=== PATIENT | female | born 1980 | race American Indian/Alaskan Native ===

== ENCOUNTER 2017-03-15 11:53 | Emergency (ER) | payer MEDICAID ==
[2017-03-15] MEDS ORDERED: Sodium Chloride 0.9% 10 ML Syringe FLUSH PRN (11:58)
[2017-03-15 12:34] LABS: CHLORIDE,CL 104 mmol/L (101-111); SODIUM,NA 138 mmol/L (135-145)
--- NOTE | 2017-03-15 13:44 | CR ---
Clinical history: 36-year-old female with chest pain. Upright AP portable chest unremarkable. Normal cardiac silhouette and pulmonary vascularity without signs of alveolar edema or dependent pleu ral effusion. No lung mass, hilar lymphadenopathy or focal lobar pneumonia. No atelectasis/collapse. No pneumothora x.
[2017-03-15] MEDS ORDERED: Sodium Chloride 0.9% 1,000 ML IV ONE (13:47)
[2017-03-15] MEDS ORDERED: Naloxone 2 MG/2 ML Syringe IVPUSH ONE (14:03)
[2017-03-15 14:14] VITALS: BP 111/59
--- NOTE | 2017-03-15 15:23 | EDM.PDOC ---
ED HPI GENERAL MEDICAL PROBLEM - General Chief Complaint: Drug or Alcohol Abuse Stated Complaint: BY AMBULANCE Time Seen by Provider: 03/15/17 13:00 Source of Information: Reports: Patient, EMS, EMS Notes Reviewed, Family, RN, RN Notes Reviewed History Limitations: Reports: No Limitations - History of Present Illness INITIAL COMMENTS - FREE TEXT/NARRATIVE: Patient presents to the ER via [facility]. EMS reports the patients sister found her laying on the floor with a dresser on top of her. Sister reported to EMS that the patient was not breathing and that she did chest compressions. Patient states she used meth x4 days ago, and used heroin today. Patient states she was getting a pair of underwear out of a drawer for her child, and does not remember anything after that. Patient denies any pain, chest pain, sob at this time. ALso denies recent illness, fever or chills, N/V/D. 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 Musculoskeletal History: Reports: None Neurological History: Reports: None Psychiatric History: Reports: Addiction Endocrine/Metabolic History: Reports: None Hematologic History: Reports: None Immunologic History: Reports: None Oncologic (Cancer) History: Reports: None Dermatologic History: Reports: None - Infectious Disease History Infectious Disease History: Reports: Hepatitis C - Past Surgical History Head Surgeries/Procedures: Reports: None Social & Family History - Tobacco Use Smoking Status *Q: Never Smoker Years of Tobacco use: 15 Used Tobacco, but Quit: No Second Hand Smoke Exposure: No - Caffeine Use Caffeine Use: Reports: Coffee, Soda - Alcohol Use Days Per Week of Alcohol Use: 0 - Recreational Drug Use Recreational Drug Use: Yes Drug Use in Last 12 Months: Yes Recreational Drug Type: Reports: Heroin, Marijuana/Hashish, Methamphetamine Other Recreational Drug Type: meth 4 days ago, marijuana last night, heroin 1 1/ 2 hous ago iv Recreational Drug Use Frequency: Not Used In Over 6 Months Recreational Drug Last Use: 2015 ED ROS GENERAL - Review of Systems Review Of Systems: ROS reveals no pertinent complaints other than HPI. - Physical Exam Exam: See Below Exam Limited By: No Limitations (Upon arrival patient is alert and able to answer questions appropriately) General Appearance: Alert, WD/WN, No Apparent Distress Eye Exam: Bilateral Eye: Normal Inspection, PERRL (sluggish) Ears: Normal External Exam, Normal Canal, Hearing Grossly Normal, Normal TMs Nose: Normal Inspection, Normal Mucosa, No Blood Throat/Mouth: Normal Inspection, Normal Lips, Normal Teeth, Normal Gums, Normal Oropharynx, Normal Voice, No Airway Compromise Head Exam: Atraumatic, Normocephalic Neck: Normal Inspection, Supple, Non-Tender, Full Range of Motion Respiratory/Chest: No Respiratory Distress, Lungs Clear, Normal Breath Sounds, No Accessory Muscle Use, Chest Non-Tender Cardiovascular: Normal Peripheral Pulses, Regular Rate, Rhythm, No Edema, No Gallop, No JVD, No Murmur, No Rub GI/Abdominal: Normal Bowel Sounds, Soft, Non-Tender, No Organomegaly, No Distention, No Abnormal Bruit, No Mass (Female) Exam: Deferred Rectal (Female) Exam: Deferred Neuro Exam (Abbreviated): Alert, Oriented, Normal Cognition, Normal Gait, No Motor/Sensory Deficits Back Exam: Normal Inspection, Full Range of Motion Extremities: Normal Inspection, Normal Range of Motion, Non-Tender, No Pedal Edema, Normal Capillary Refill Psychiatric: Normal Affect, Anxious Skin Exam: Warm, Dry, Intact, Normal Color, No Rash EKG INTERPRETATION Rhythm: NSR [place]: Normal P-Wave: Present QRS: Normal ST-T: Normal QT: Normal Course - Vital Signs Last Recorded V/S: Last Vital Signs Temp 95 F L 03/15/17 11:56 Pulse 57 L 03/15/17 14:13 Resp 16 03/15/17 14:13 BP 111/59 L 03/15/17 14:13 Pulse Ox 100 03/15/17 14:13 - Orders/Labs/Meds Orders: Active Orders 24 hr Category Date Time Status EKG Documentation Completion [RC] STAT Care 03/15/17 11:59 Active Peripheral IV Care [RC] . DIRECTED Care 03/15/17 12:00 Active Peripheral IV Insertion Adult [OM.PC] Stat Oth 03/15/17 11:58 Ordered Labs: Laboratory Tests 03/15/17 03/15/17 03/15/17 Range/Units 12:07 12:07 13:50 WBC 10.2 H (5.0-10.0) 10^3/uL RBC 4.37 (4.2-5.4) 10^6/uL Hgb 12.0 D (12.0-16.0) g/dL Hct 37.8 (37.0-47.0) % MCV 86.5 (80-100) fL MCH 27.5 (27.0-34.0) pg MCHC 31.7 L (33.0-35.0) g/dL Plt Count 282 (150-450) 10^3/uL Neut % (Auto) 71.9 (42.2-75.2) % Lymph % (Auto) 17.0 L (20.5-50.1) % [place] % (Auto) 4.3 (2-8) % Eos % (Auto) 6.5 H (1.0-3.0) % Baso % (Auto) 0.3 (0.0-1.0) % Sodium 138 (135-145) mmol/L Potassium 3.5 L (3.6-5.0) mmol/L Chloride 104 (101-111) mmol/L Carbon Dioxide 25.0 (21.0-31.0) mmol/L Anion Gap 12.5 BUN 7 (7-18) mg/dL Creatinine 0.7 (0.6-1.3) mg/dL Est Cr Clr Drug Dosing 132.25 mL/min Estimated GFR (MDRD) > 60 BUN/Creatinine Ratio 10.00 Glucose 139 H (74-105) mg/dL Calcium 8.8 (8.4-10.2) mg/dl Total Bilirubin 0.5 (0.2-1.0) mg/dL AST 52 H (10-42) IU/L ALT 51 (10-60) IU/L Alkaline Phosphatase 64 (42-121) IU/L Troponin I < 0.02 (0.00-0.02) ng/ml Total Protein 8.0 (6.7-8.2) g/dl Albumin 3.9 (3.2-5.5) g/dl Globulin 4.1 Albumin/Globulin Ratio 0.95 Urine Color (YELLOW) Urine Appearance (CLEAR) Urine pH (5.0-9.0) Ur Specific [place] (1.005-1.030) Urine Protein (NEGATIVE) Urine Glucose (UA) (NEGATIVE) Urine Ketones (NEGATIVE) Urine Occult Blood (NEGATIVE) Urine Nitrite (NEGATIVE) Urine Bilirubin (NEGATIVE) Urine Urobilinogen (0.2-1.0) mg/dL Ur Leukocyte Esterase (NEGATIVE) Urine RBC /HPF Urine WBC (0-5/HPF) /HPF Ur Epithelial Cells /HPF Urine Bacteria (0-FEW/HPF) /HPF Urine HCG, Qual Urine Opiates Screen Positive H (NEGATIVE) Ur Oxycodone Screen Negative (NEGATIVE) Urine Methadone Screen Negative (NEGATIVE) Ur Barbiturates Screen Negative (NEGATIVE) U Tricyclic Antidepress Negative (NEGATIVE) Ur Phencyclidine Scrn Negative (NEGATIVE) Ur Amphetamine Screen Positive H (NEGATIVE) U Methamphetamines Scrn Positive H (NEGATIVE) Urine MDMA Screen Negative (NEGATIVE) U Benzodiazepines Scrn Negative (NEGATIVE) Urine Cocaine Screen Negative (NEGATIVE) U Marijuana (THC) Screen Positive H (NEGATIVE) Ethyl Alcohol < 5 mg/dL 03/15/17 03/15/17 Range/Units 13:50 13:50 WBC (5.0-10.0) 10^3/uL RBC (4.2-5.4) 10^6/uL Hgb (12.0-16.0) g/dL Hct (37.0-47.0) % MCV (80-100) fL MCH (27.0-34.0) pg MCHC (33.0-35.0) g/dL Plt Count (150-450) 10^3/uL Neut % (Auto) (42.2-75.2) % Lymph % (Auto) (20.5-50.1) % [place] % (Auto) (2-8) % Eos % (Auto) (1.0-3.0) % Baso % (Auto) (0.0-1.0) % Sodium (135-145) mmol/L Potassium (3.6-5.0) mmol/L Chloride (101-111) mmol/L Carbon Dioxide (21.0-31.0) mmol/L Anion Gap BUN (7-18) mg/dL Creatinine (0.6-1.3) mg/dL Est Cr Clr Drug Dosing mL/min Estimated GFR (MDRD) BUN/Creatinine Ratio Glucose (74-105) mg/dL Calcium (8.4-10.2) mg/dl Total Bilirubin (0.2-1.0) mg/dL AST (10-42) IU/L ALT (10-60) IU/L Alkaline Phosphatase (42-121) IU/L Troponin I (0.00-0.02) ng/ml Total Protein (6.7-8.2) g/dl Albumin (3.2-5.5) g/dl Globulin Albumin/Globulin Ratio Urine Color Yellow (YELLOW) Urine Appearance Slightly cloudy (CLEAR) Urine pH 5.5 (5.0-9.0) Ur Specific [place] >= 1.030 (1.005-1.030) Urine Protein Trace H (NEGATIVE) Urine Glucose (UA) Negative (NEGATIVE) Urine Ketones Negative (NEGATIVE) Urine Occult Blood Moderate H (NEGATIVE) Urine Nitrite Negative (NEGATIVE) Urine Bilirubin Negative (NEGATIVE) Urine Urobilinogen 0.2 (0.2-1.0) mg/dL Ur Leukocyte Esterase Negative (NEGATIVE) Urine RBC 5-10 H /HPF Urine WBC 0-5 (0-5/HPF) /HPF Ur Epithelial Cells Rare /HPF Urine Bacteria Rare (0-FEW/HPF) /HPF Urine HCG, Qual Negative Urine Opiates Screen (NEGATIVE) Ur Oxycodone Screen (NEGATIVE) Urine Methadone Screen (NEGATIVE) Ur Barbiturates Screen (NEGATIVE) U Tricyclic Antidepress (NEGATIVE) Ur Phencyclidine Scrn (NEGATIVE) Ur Amphetamine Screen (NEGATIVE) U Methamphetamines Scrn (NEGATIVE) Urine MDMA Screen (NEGATIVE) U Benzodiazepines Scrn (NEGATIVE) Urine Cocaine Screen (NEGATIVE) U Marijuana (THC) Screen (NEGATIVE) Ethyl Alcohol mg/dL Meds: Medications Discontinued Medications Generic Name Dose Route Start Last Admin Trade Name Freq PRN Reason Stop Dose Admin Sodium Chloride 1,000 mls @ 999 mls/hr 03/15/17 13:47 03/15/17 13:57 Normal Saline IV 03/15/17 14:47 999 mls/hr .BOLUS ONE Administration Naloxone HCl 0.4 mg 03/15/17 14:03 03/15/17 14:09 Narcan IVPUSH 03/15/17 14:04 0.4 mg ONETIME ONE Administration Sodium Chloride 10 ml 03/15/17 11:58 03/15/17 13:57 Saline Flush FLUSH 10 ml ASDIRECTED PRN Administration Keep Vein Open Departure - Departure Time of Disposition: 15:20 Disposition: Home, Self-Care 01 Condition: Fair Clinical Impression: Drug abuse - Discharge Information Instructions: Chemical Dependency, Finding Treatment for Addiction Referrals: Edgard Roland [Ordering Only Provider] - Forms: ED Department Discharge Additional Instructions: Refrain from heroin and meth use. Follow up with primary care provider. - My Orders Last 24 Hours: My Active Orders 03/15/17 11:58 Peripheral IV Insertion Adult [OM.PC] Stat 03/15/17 11:59 EKG Documentation Completion [RC] STAT 03/15/17 12:00 Peripheral IV Care [RC] . DIRECTED - Assessment/Plan Last 24 Hours: My Active Orders 03/15/17 11:58 Peripheral IV Insertion Adult [OM.PC] Stat 03/15/17 11:59 EKG Documentation Completion [RC] STAT 03/15/17 12:00 Peripheral IV Care [RC] . DIRECTED
--- NOTE | 2017-03-17 15:26 | EKG ---
03/15/2017 - JACQUELINE MONTALVO - EKG per my reading shows sinus rhythm at the rate of 60. [facility] /[id number]
== END 2017-03-15 15:50 | disposition home or self-care (01) ==
LOC: DL.ED 11:53
DX: F19.10 Other psychoactive substance abuse, uncomplicated (principal)
CPT/HCPCS: 36415; 71010; 80053; 80305; 81001; 81025; 84484; 85025; 93005; 96361; 96374; 99284; G0480; J2310; J7030; J7050

== ENCOUNTER 2019-09-29 22:42 | Emergency (ER) | payer MEDICAID ==
[2019-09-29] MEDS ORDERED: Magnesium Citrate Solution 296 ML Bottle PO ONE (22:43)
[2019-09-29 22:47] VITALS: BP 165/95; PULSE 103
--- NOTE | 2019-09-29 22:59 | EDM.PDOC ---
ED HPI GENERAL MEDICAL PROBLEM - General Chief Complaint: Abdominal Pain Stated Complaint: STOMACH PAIN Time Seen by Provider: 09/29/19 22:57 Source of Information: Reports: Patient History Limitations: Reports: No Limitations - History of Present Illness INITIAL COMMENTS - FREE TEXT/NARRATIVE: onset LLQ pain yesterday, feels like needing to BM but only got gas and diarrhoea, ate dinner tonight of ham and burger without problem, denies UTI Sx. 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 Musculoskeletal History: Reports: None Neurological History: Reports: None Psychiatric History: Reports: Addiction Endocrine/Metabolic History: Reports: None Hematologic History: Reports: None Immunologic History: Reports: None Oncologic (Cancer) History: Reports: None Dermatologic History: Reports: None - Infectious Disease History Infectious Disease History: Reports: Hepatitis C - Past Surgical History Head Surgeries/Procedures: Reports: None Female Surgical History: Reports: Section Social & Family History - Tobacco Use Smoking Status *Q: Never Smoker Second Hand Smoke Exposure: No - Caffeine Use Caffeine Use: Reports: Coffee, Soda - Recreational Drug Use Recreational Drug Use: No ED ROS GENERAL - Review of Systems Review Of Systems: Comprehensive ROS is negative, except as noted in HPI. ED EXAM, GI/ABD - Physical Exam Exam: See Below Exam Limited By: No Limitations General Appearance: Alert, WD/WN, Mild Distress, Other (discomfort). No: Active Emesis Ears: Hearing Grossly Normal Throat/Mouth: Normal Voice, No Airway Compromise Head: Atraumatic Neck: Non-Tender, Full Range of Motion Respiratory/Chest: No Respiratory Distress Cardiovascular: Regular Rate, Rhythm GI/Abdominal Exam: Tender, Other (LLQ region, BS hyper). No: Distended, Guarding, Rigid, Rebound Neurological: Alert, Oriented, Normal Cognition, Normal Gait, No Motor/Sensory Deficits Psychiatric: Flat Affect Skin Exam: Warm, Dry, Normal Color Lymphatic: No Adenopathy Course - Vital Signs Last Recorded V/S: Last Vital Signs Temp 37.2 C 09/30/19 00:10 Pulse 103 H 09/29/19 22:44 Resp 18 09/29/19 22:44 BP 165/95 H 09/29/19 22:44 Pulse Ox 96 09/29/19 22:44 - Orders/Labs/Meds Orders: Active Orders 24 hr Category Date Time Status Abdomen 1V Flat [CR] Urgent Exams 09/30/19 00:05 Taken Labs: Laboratory Tests 09/29/19 09/29/19 09/29/19 Range/Units 23:15 23:15 23:15 WBC (5.0-10.0) 10^3/uL RBC (4.2-5.4) 10^6/uL Hgb (12.0-16.0) g/dL Hct (37.0-47.0) % MCV (80-100) fL MCH (27.0-34.0) pg MCHC (33.0-35.0) g/dL Plt Count (150-450) 10^3/uL Neut % (Auto) (42.2-75.2) % Lymph % (Auto) (20.5-50.1) % [place] % (Auto) (2-8) % Eos % (Auto) (1.0-3.0) % Baso % (Auto) (0.0-1.0) % Sodium (136-145) mmol/L Potassium (3.5-5.1) mmol/L Chloride (98-107) mmol/L Carbon Dioxide (21-32) mmol/L Anion Gap (7-13) mEq/L BUN (7-18) mg/dL Creatinine (0.55-1.02) mg/dL Est Cr Clr Drug Dosing mL/min Estimated GFR (MDRD) BUN/Creatinine Ratio (No establ ref range) Glucose (74-99) mg/dL Calcium (8.5-10.1) mg/dL Total Bilirubin (0.2-1.0) mg/dL AST (15-37) U/L ALT (14-59) U/L Alkaline Phosphatase (46-116) U/L Total Protein (6.4-8.2) g/dL Albumin (3.4-5.0) g/dL Globulin Albumin/Globulin Ratio Urine Color Yellow (YELLOW) Urine Appearance Clear (CLEAR) Urine pH 8.0 (5.0-9.0) Ur Specific [place] 1.025 (1.005-1.030) Urine Protein Negative (NEGATIVE) Urine Glucose (UA) Negative (NEGATIVE) Urine Ketones Negative (NEGATIVE) Urine Occult Blood Negative (NEGATIVE) Urine Nitrite Negative (NEGATIVE) Urine Bilirubin Negative (NEGATIVE) Urine Urobilinogen 2.0 H (0.2-1.0) mg/dL Ur Leukocyte Esterase Negative (NEGATIVE) Urine HCG, Qual Negative Urine Opiates Screen Negative (NEGATIVE) Ur Oxycodone Screen Negative (NEGATIVE) Urine Methadone Screen Negative (NEGATIVE) Ur Barbiturates Screen Negative (NEGATIVE) U Tricyclic Antidepress Negative (NEGATIVE) Ur Phencyclidine Scrn Negative (NEGATIVE) Ur Amphetamine Screen Negative (NEGATIVE) U Methamphetamines Scrn Negative (NEGATIVE) Urine MDMA Screen Negative (NEGATIVE) U Benzodiazepines Scrn Negative (NEGATIVE) Urine Cocaine Screen Negative (NEGATIVE) U Marijuana (THC) Screen Negative (NEGATIVE) Ethyl Alcohol (0) mg/dL 09/29/19 09/29/19 09/29/19 Range/Units 23:20 23:20 23:20 WBC 13.4 H (5.0-10.0) 10^3/uL RBC 4.81 (4.2-5.4) 10^6/uL Hgb 12.4 (12.0-16.0) g/dL Hct 38.8 (37.0-47.0) % MCV 80.7 D (80-100) fL MCH 25.8 L (27.0-34.0) pg MCHC 32.0 L (33.0-35.0) g/dL Plt Count 245 (150-450) 10^3/uL Neut % (Auto) 63.8 (42.2-75.2) % Lymph % (Auto) 19.6 L (20.5-50.1) % [place] % (Auto) 6.6 (2-8) % Eos % (Auto) 9.8 H (1.0-3.0) % Baso % (Auto) 0.2 (0.0-1.0) % Sodium 137 (136-145) mmol/L Potassium 3.9 (3.5-5.1) mmol/L Chloride 102 (98-107) mmol/L Carbon Dioxide 23 (21-32) mmol/L Anion Gap 15.9 H (7-13) mEq/L BUN 5 L (7-18) mg/dL Creatinine 0.73 (0.55-1.02) mg/dL Est Cr Clr Drug Dosing 123.16 mL/min Estimated GFR (MDRD) > 60 BUN/Creatinine Ratio 6.8 (No establ ref range) Glucose 162 H (74-99) mg/dL Calcium 8.4 L (8.5-10.1) mg/dL Total Bilirubin 0.3 (0.2-1.0) mg/dL AST 107 H (15-37) U/L ALT 107 H (14-59) U/L Alkaline Phosphatase 111 (46-116) U/L Total Protein 8.3 H (6.4-8.2) g/dL Albumin 3.3 L (3.4-5.0) g/dL Globulin 5.0 Albumin/Globulin Ratio 0.66 Urine Color (YELLOW) Urine Appearance (CLEAR) Urine pH (5.0-9.0) Ur Specific [place] (1.005-1.030) Urine Protein (NEGATIVE) Urine Glucose (UA) (NEGATIVE) Urine Ketones (NEGATIVE) Urine Occult Blood (NEGATIVE) Urine Nitrite (NEGATIVE) Urine Bilirubin (NEGATIVE) Urine Urobilinogen (0.2-1.0) mg/dL Ur Leukocyte Esterase (NEGATIVE) Urine HCG, Qual Urine Opiates Screen (NEGATIVE) Ur Oxycodone Screen (NEGATIVE) Urine Methadone Screen (NEGATIVE) Ur Barbiturates Screen (NEGATIVE) U Tricyclic Antidepress (NEGATIVE) Ur Phencyclidine Scrn (NEGATIVE) Ur Amphetamine Screen (NEGATIVE) U Methamphetamines Scrn (NEGATIVE) Urine MDMA Screen (NEGATIVE) U Benzodiazepines Scrn (NEGATIVE) Urine Cocaine Screen (NEGATIVE) U Marijuana (THC) Screen (NEGATIVE) Ethyl Alcohol < 3 (0) mg/dL Meds: Medications Discontinued Medications Generic Name Dose Route Start Last Admin Trade Name Freq PRN Reason Stop Dose Admin Lorazepam 1 mg 09/30/19 00:34 Ativan PO 09/30/19 00:35 ONETIME ONE - Re-Assessments/Exams Free Text/Narrative Re-Assessment/Exam: 09/30/19 00:35 results discussed with pt. Departure - Departure Time of Disposition: 00:36 Disposition: Home, Self-Care 01 Condition: Good Clinical Impression: Constipation by delayed colonic transit Abdominal pain Qualifiers: Abdominal location: left lower quadrant Qualified Code(s): R10.32 - Left lower quadrant pain - Discharge Information Instructions: Constipation, Adult, [id number] Forms: ED Department Discharge Additional Instructions: 1) take MAG CIT in the morning 2) prune juice daily or try MIRALAX 3) avoid solid foods for 2 to 3 days. have liquid or soft diet 4) see clinic for PELVIC ULTRASOUND for possible OVARIAN CYSTE rx togo; mag cit x 1 Sepsis Event Note - Evaluation Sepsis Screening Result: No Definite Risk - Focused Exam Vital Signs: Vital Signs Temp Pulse Resp BP Pulse Ox 09/30/19 00:10 37.2 C 09/29/19 22:44 37.7 C 103 H 18 165/95 H 96 Date Exam was Performed: 09/30/19 Time Exam was Performed: 00:35 - My Orders Last 24 Hours: My Active Orders 09/30/19 00:05 Abdomen 1V Flat [CR] Urgent - Assessment/Plan Last 24 Hours: My Active Orders 09/30/19 00:05 Abdomen 1V Flat [CR] Urgent
[2019-09-29 23:48] LABS: ANION GAP 15.9 mEq/L (7-13); CHLORIDE,CL 102 mmol/L (98-107); SODIUM,NA 137 mmol/L (136-145)
[2019-09-30] MEDS ORDERED: LORazepam 1 MG Tab PO ONE (00:34)
[2019-09-30] MEDS ORDERED: Magnesium Citrate Solution 296 ML Bottle ONE (00:36)
== END 2019-09-30 00:45 | disposition home or self-care (01) ==
LOC: DL.ED 22:42
DX: K59.01 Slow transit constipation (principal)
CPT/HCPCS: 36415; 74018; 80053; 80305; 80307; 81003; 81025; 85025; 99284; A9270

== ENCOUNTER 2020-03-02 19:42 | Emergency (ER) | payer MEDICAID ==
[2020-03-02 20:29] VITALS: BP 146/89; PULSE 113
[2020-03-02 21:33] LABS: ANION GAP 12.5 mEq/L (7-13); CHLORIDE,CL 101 mmol/L (98-107); SODIUM,NA 136 mmol/L (136-145)
--- NOTE | 2020-03-02 22:26 | CT ---
PROCEDURE INFORMATION: Exam: CT Chest Without Contrast Exam date and time: 03/02/2020 10:01 PM Age: 39 years old Clinical indication: Cough and shortness of breath; Additional info: Covid SOB chest pain TECHNIQUE: Imaging protocol: Computed tomography of the chest without contrast. Radiation optimization: All CT scans at this facility use at least one of these dose optimization techniques: automated exposure control; mA and/or kV adjustment per patient size (includes targeted exams where dose is matched to clinical indication); or iterative reconstruction. COMPARISON: No relevant prior studies available. FINDINGS: Lungs: A 4 mm nodule on image 23, lies in the right upper lobe. There are mild scattered ground-glass opacities in the lung periphery bilaterally. Lung volumes are normal.The bronchial tree is normal. Pleural space: The pleural surfaces are normal. Heart: The heart is normal for nonenhanced technique. Mediastinal space: The esophagus is normal. The trachea is normal, aside from A small diverticulum projects to the right from the upper thoracic trachea. Pulmonary arteries: The central pulmonary arteries demonstrate moderate enlargement, consistent with moderate pulmonary hypertension. The pulmonary artery appears normal for nonenhanced technique. Aorta: The aorta and great vessel origins are grossly normal for nonenhanced technique. Great vessels off aortic arch: The aortic arch has normal morphology, the origin of the great vessels are widely patent. Lymph nodes: There is no evidence of mediastinal or hilar lymphadenopathy / mass. Gallbladder and bile ducts: A calcified gallstone is present. Spleen: There is mild nonspecific splenomegaly. Bones/joints: The thoracic spine demonstrates mild degenerative changes at multiple levels. Soft tissues: Unremarkable. Other findings: The remaining, visualized abdominal viscera is normal. IMPRESSION: 1. Mild diffuse ground-glass opacities consistent with, but not specific for, COVID-19 pneumonia. 2. 9 mm right upper tracheal diverticulum. 3. Suspect chronic pulmonary arterial hypertension. 4. Cholelithiasis,There is no wall thickening or pericholecystic fluid to suggest cholecystitis. 5. Mild splenomegaly 6. 4 mm pulmonary nodule: For patients at low risk (minimal or absent history of smoking and of other known risk factors), no routine follow-up is indicated. For patients at high risk (history of smoking or of other known risk factors), consider optional CT at 12 months. (Kelly et al., Fleischner Society, 2017)
--- NOTE | 2020-03-02 22:35 | EDM.PDOC ---
ED HPI GENERAL MEDICAL PROBLEM - General Chief Complaint: Respiratory Problem Stated Complaint: TROUBLE BREATHING, HEADACHE, LOSS OF SMELL/TASTE Time Seen by Provider: 03/02/20 22:31 Source of Information: Reports: Patient History Limitations: Reports: No Limitations - History of Present Illness INITIAL COMMENTS - FREE TEXT/NARRATIVE: states been sick with sinus congestion and cough and SOB then started to loose taste and smell. so come here. Throat Pain Score (Numeric/FACES): 7 - Related Data Allergies Allergy/AdvReac Type Severity Reaction Status Date / Time No Known Allergies Allergy Verified 03/02/20 20:29 Home Meds: Home Meds . 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 Musculoskeletal History: Reports: None Neurological History: Reports: None Psychiatric History: Reports: Addiction Endocrine/Metabolic History: Reports: None Hematologic History: Reports: None Immunologic History: Reports: None Oncologic (Cancer) History: Reports: None Dermatologic History: Reports: None - Infectious Disease History Infectious Disease History: Reports: Hepatitis C - Past Surgical History Head Surgeries/Procedures: Reports: None Female Surgical History: Reports: Section Social & Family History - Tobacco Use Smoking Status *Q: Never Smoker Second Hand Smoke Exposure: No - Caffeine Use Caffeine Use: Reports: Coffee, Soda - Recreational Drug Use Recreational Drug Use: No ED ROS GENERAL - Review of Systems Review Of Systems: Comprehensive ROS is negative, except as noted in HPI. ED EXAM, GENERAL - Physical Exam Exam: See Below Exam Limited By: No Limitations General Appearance: Alert, WD/WN, Mild Distress, Other (discomfort txting cellphone) Ears: Hearing Grossly Normal Throat/Mouth: Normal Voice, No Airway Compromise Head: Atraumatic Neck: Non-Tender, Full Range of Motion Respiratory/Chest: No Respiratory Distress, Rhonchi Cardiovascular: Regular Rate, Rhythm GI/Abdominal: Soft, Non-Tender (Female) Exam: Deferred Rectal (Female) Exam: Deferred Neurological: Alert, Oriented, Normal Cognition, Normal Gait, No Motor/Sensory Deficits Psychiatric: Normal Affect, Normal Mood Skin Exam: Warm, Dry, Normal Color Lymphatic: No Adenopathy Course - Vital Signs Last Recorded V/S: Last Vital Signs Temp 37.7 C 03/02/20 20:20 Pulse 113 H 03/02/20 20:20 Resp 20 03/02/20 20:20 BP 146/89 H 03/02/20 20:20 Pulse Ox 96 03/02/20 20:20 - Orders/Labs/Meds Orders: Active Orders 24 hr Category Date Time Status CULTURE BLOOD [BC] Stat Lab 03/02/20 21:00 Results D Dimer [D-DIMER QUANTITATIVE] [COAG] Stat Lab 03/02/20 21:34 Stop Req Labs: Laboratory Tests 03/02/20 03/02/20 03/02/20 Range/Units 20:56 21:00 21:00 WBC 6.6 (5.0-10.0) 10^3/uL RBC 4.83 (4.2-5.4) 10^6/uL Hgb 12.3 (12.0-16.0) g/dL Hct 38.6 (37.0-47.0) % MCV 79.9 L (80-100) fL MCH 25.5 L (27.0-34.0) pg MCHC 31.9 L (33.0-35.0) g/dL Plt Count 150 D (150-450) 10^3/uL Neut % (Auto) 69.9 (42.2-75.2) % Lymph % (Auto) 20.0 L (20.5-50.1) % [place] % (Auto) 9.6 H (2-8) % Eos % (Auto) 0.2 L (1.0-3.0) % Baso % (Auto) 0.3 (0.0-1.0) % Sodium 136 (136-145) mmol/L Potassium 3.5 (3.5-5.1) mmol/L Chloride 101 (98-107) mmol/L Carbon Dioxide 26 (21-32) mmol/L Anion Gap 12.5 (7-13) mEq/L BUN 6 L (7-18) mg/dL Creatinine 0.88 (0.55-1.02) mg/dL Est Cr Clr Drug Dosing 105.28 mL/min Estimated GFR (MDRD) > 60 BUN/Creatinine Ratio 6.8 (No establ ref range) Glucose 93 (74-99) mg/dL Lactic Acid (0.4-2.0) mmol/L Calcium 8.4 L (8.5-10.1) mg/dL Total Bilirubin 0.8 (0.2-1.0) mg/dL AST 199 H (15-37) U/L ALT 108 H (14-59) U/L Alkaline Phosphatase 87 (46-116) U/L Total Protein 8.7 H (6.4-8.2) g/dL Albumin 3.4 (3.4-5.0) g/dL Globulin 5.3 Albumin/Globulin Ratio 0.6 SARS CoV-2 RNA Rapid JAZMINE Positive H (NEGATIVE) 03/02/20 Range/Units 21:00 WBC (5.0-10.0) 10^3/uL RBC (4.2-5.4) 10^6/uL Hgb (12.0-16.0) g/dL Hct (37.0-47.0) % MCV (80-100) fL MCH (27.0-34.0) pg MCHC (33.0-35.0) g/dL Plt Count (150-450) 10^3/uL Neut % (Auto) (42.2-75.2) % Lymph % (Auto) (20.5-50.1) % [place] % (Auto) (2-8) % Eos % (Auto) (1.0-3.0) % Baso % (Auto) (0.0-1.0) % Sodium (136-145) mmol/L Potassium (3.5-5.1) mmol/L Chloride (98-107) mmol/L Carbon Dioxide (21-32) mmol/L Anion Gap (7-13) mEq/L BUN (7-18) mg/dL Creatinine (0.55-1.02) mg/dL Est Cr Clr Drug Dosing mL/min Estimated GFR (MDRD) BUN/Creatinine Ratio (No establ ref range) Glucose (74-99) mg/dL Lactic Acid 1.4 (0.4-2.0) mmol/L Calcium (8.5-10.1) mg/dL Total Bilirubin (0.2-1.0) mg/dL AST (15-37) U/L ALT (14-59) U/L Alkaline Phosphatase (46-116) U/L Total Protein (6.4-8.2) g/dL Albumin (3.4-5.0) g/dL Globulin Albumin/Globulin Ratio SARS CoV-2 RNA Rapid JAZMINE (NEGATIVE) - Re-Assessments/Exams Free Text/Narrative Re-Assessment/Exam: 03/02/20 22:33 results discussed with pt who states will stay home next 2 weeks. Departure - Departure Time of Disposition: 22:33 Disposition: Home, Self-Care 01 Condition: Good Clinical Impression: COVID-19 - Discharge Information Instructions: COVID-19 Frequently Asked Questions Additional Instructions: 1) self quarantine next 2 weeks 2) continue home meds 3) take tylenol or motrin for fever and discomfort 4) recheck if thee is any change or concern rx given; z-soheila Sepsis Event Note (ED) - Evaluation Sepsis Screening Result: No Definite Risk - Focused Exam Vital Signs: Vital Signs Temp Pulse Resp BP Pulse Ox 03/02/20 20:20 37.7 C 113 H 20 146/89 H 96 - My Orders Last 24 Hours: My Active Orders 03/02/20 21:00 CULTURE BLOOD [BC] Stat 03/02/20 21:34 D Dimer [D-DIMER QUANTITATIVE] [COAG] Stat - Assessment/Plan Last 24 Hours: My Active Orders 03/02/20 21:00 CULTURE BLOOD [BC] Stat 03/02/20 21:34 D Dimer [D-DIMER QUANTITATIVE] [COAG] Stat
== END 2020-03-02 22:48 | disposition home or self-care (01) ==
LOC: DL.ED 19:42
DX: U07.1 COVID-19 (principal); Z98.890 Other specified postprocedural states
CPT/HCPCS: 36415; 71250; 80053; 83605; 85025; 87040; 99285-25; U0002

== ENCOUNTER 2020-04-25 00:09 | Emergency (ER) | payer MEDICAID ==
--- NOTE | 2020-04-25 00:34 | EDM.PDOC ---
ED HPI GENERAL MEDICAL PROBLEM - General Stated Complaint: THROAT PAIN/COUGH Time Seen by Provider: 04/25/20 00:35 Source of Information: Reports: Patient, RN, RN Notes Reviewed History Limitations: Reports: No Limitations - History of Present Illness INITIAL COMMENTS - FREE TEXT/NARRATIVE: ED with c/o cough sore throat x 2 days, hx COVID 2 months prior. Trying cough syrup and tylenol. Not getting better No fever. No vomiting. Smoker. Throat Pain Score (Numeric/FACES): 6 - Related Data Allergies Allergy/AdvReac Type Severity Reaction Status Date / Time No Known Allergies Allergy Verified 04/25/20 00:37 Home Meds: Home Meds . 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 Musculoskeletal History: Reports: None Neurological History: Reports: None Psychiatric History: Reports: Addiction Endocrine/Metabolic History: Reports: None Hematologic History: Reports: None Immunologic History: Reports: None Oncologic (Cancer) History: Reports: None Dermatologic History: Reports: None - Infectious Disease History Infectious Disease History: Reports: Hepatitis C - Past Surgical History Head Surgeries/Procedures: Reports: None Female Surgical History: Reports: Section Social & Family History - Caffeine Use Caffeine Use: Reports: Coffee, Soda ED ROS ENT - Review of Systems Review Of Systems: Comprehensive ROS is negative, except as noted in HPI. ED EXAM, ENT - Physical Exam Exam: See Below Exam Limited By: No Limitations General Appearance: Alert, Mild Distress Eye Exam: Bilateral Eye: EOMI Ears: Normal External Exam, Normal TMs Mouth/Throat: Hoarse Voice, Other (lipsmacking, rhythmic oral movments). No: Pharyngeal Erythema, Tonsillar Swelling, Uvular Deviation, Uvular Edema Head: Atraumatic, Normocephalic Respiratory/Chest: No Respiratory Distress, Lungs Clear Cardiovascular: Normal Peripheral Pulses, Regular Rate, Rhythm Back: Full Range of Motion Extremities: Normal Inspection Neurological: Alert, Oriented, Normal Cognition Skin: Warm, Dry, Normal Color Course - Vital Signs Last Recorded V/S: Last Vital Signs Temp 96.8 F L 04/25/20 00:29 Pulse 88 04/25/20 00:29 Resp 19 04/25/20 00:29 BP 156/96 H 04/25/20 00:29 Pulse Ox 98 04/25/20 00:29 - Orders/Labs/Meds Orders: Active Orders 24 hr Category Date Time Status CULTURE STREP A CONFIRMATION [RM] Stat Lab 04/25/20 00:30 Results STREP SCRN A RAPID W CULT CONF [RM] Stat Lab 04/25/20 00:30 Results Departure - Departure Time of Disposition: 00:52 Disposition: Home, Self-Care 01 Condition: Good Clinical Impression: URI (upper respiratory infection) Qualifiers: URI type: unspecified viral URI Qualified Code(s): J06.9 - Acute upper res piratory infection, unspecified - Discharge Information *PRESCRIPTION DRUG MONITORING PROGRAM REVIEWED*: No *COPY OF PRESCRIPTION DRUG MONITORING REPORT IN PATIENT [place]: No Instructions: Upper Respiratory Infection, Adult, Cough, Adult Additional Instructions: increase fluids alternate tylenol and ibuprofen every 4 hours as needed for discomfort tesselon 200mg one every 8 hours as needed for cough over counter cough and could medications stop smoking follow up if symptoms worsen.0 humidifier Sepsis Event Note (ED) - Focused Exam Vital Signs: Vital Signs Temp Pulse Resp BP Pulse Ox 04/25/20 00:29 96.8 F L 88 19 156/96 H 98 - My Orders Last 24 Hours: My Active Orders 04/25/20 00:30 CULTURE STREP A CONFIRMATION [RM] Stat STREP SCRN A RAPID W CULT CONF [RM] Stat - Assessment/Plan Last 24 Hours: My Active Orders 04/25/20 00:30 CULTURE STREP A CONFIRMATION [RM] Stat STREP SCRN A RAPID W CULT CONF [RM] Stat
[2020-04-25 00:37] VITALS: BP 156/96; PULSE 88
[2020-04-25] MEDS ORDERED: Benzonatate 100 MG Cap PO ONE (00:54)
== END 2020-04-25 01:10 | disposition home or self-care (01) ==
LOC: DL.ED 00:09
DX: J06.9 Acute upper respiratory infection, unspecified (principal)
CPT/HCPCS: 87081; 87430; 99283; A9270-GY